=== PATIENT | female | born 1945 | race Caucasian/White ===

== ENCOUNTER 2018-04-09 15:04 | Outpatient (CLI) | payer MEDICARE, OTHER, SELFPAY ==
[2018-04-09 16:04] LABS: Abs Immature Grans 0.01 k/cumm (0.0-0.09); Absolute Basophil Count 0.04 k/cumm (0.0-0.2); Absolute Eosinophil Count 0.31 k/cumm (0.0-0.7); Absolute Lymphocyte Count 1.49 k/cumm (1.2-3.4); Absolute Monocyte Count 0.67 k/cumm (0.11-0.7); Absolute Neutrophil Count 2.85 k/cumm (1.2-6.7); Basophils % 0.7; Eosinophils % 5.8; HCT 38.6 % (36.0-46.0); HGB 12.8 g/dL (12.0-15.5); Immature Grans % 0.2; Lymphocytes % 27.7; Mean Corp. HGB Concentration 33.2 g/dL (32.0-36.0); Mean Corpuscular Hemoglobin 29.8 pg (27.0-33.0); Mean Corpuscular Volume 89.8 fL (80-95); Mean Platelet Volume 9.6 fL (8.0-11.0); Monocytes % 12.5; Neutrophils % 53.1; Platelet Count 228 x1000/uL (130-400); RBC Distribution Width 14.2 % (11.7-14.6); White Blood Cell Count 5.37 k/cumm (4.4-10.8)
[2018-04-09 16:24] LABS: ALT 34 U/L (12-78); AST 22 U/L (15-37); Albumin 3.4 g/dL (3.4-5.0); Alkaline Phosphatase 57 U/L (46-116); Anion Gap 6.5 mmol/L (3-11); BUN 18 mg/dL (7-18); Bilirubin, Total 0.3 mg/dL (0.2-1.0); CO2 30.5 mmol/L (21.0-32.0); CREATININE 0.71 mg/dL (0.55-1.02); Calcium 8.5 mg/dL (8.5-10.1); Chloride 103 mmol/L (98-107); Glucose 83 mg/dL (70-100); Potassium 3.9 mmol/L (3.5-5.1); Sodium 140 mmol/L (136-145); Total Protein 6.9 g/dL (6.4-8.2)
== END 2018-04-09 15:24 ==
PROVIDERS: PCP Neuromusculoskeletal Medicine & OMM; Visit Provider Internal Medicine
DX: C50.912 Malignant neoplasm of unspecified site of left female breast (principal); Z17.0 Estrogen receptor positive status [ER+]
CPT/HCPCS: 36415; 80053; 85025

== ENCOUNTER 2018-06-07 09:55 | Outpatient (CLI) | payer MEDICARE, OTHER, SELFPAY ==
[2018-06-07 10:18] LABS: Absolute Basophil Count 0.06 k/cumm (0.0-0.2); Absolute Eosinophil Count 0.31 k/cumm (0.0-0.7); Absolute Lymphocyte Count 1.04 k/cumm (1.2-3.4); Absolute Monocyte Count 0.66 k/cumm (0.11-0.7); Basophils % 1.3; Eosinophils % 6.5; HGB 13.3 g/dL (12.0-15.5); Lymphocytes % 21.8; Mean Corp. HGB Concentration 32.4 g/dL (32.0-36.0); Mean Corpuscular Hemoglobin 29.8 pg (27.0-33.0); Mean Corpuscular Volume 91.7 fL (80-95); Mean Platelet Volume 9.7 fL (8.0-11.0); Monocytes % 13.8; Neutrophils % 56.6; Platelet Count 210 x1000/uL (130-400); RBC 4.47 m/cumm (4.00-5.20); RBC Distribution Width 13.9 % (11.7-14.6); White Blood Cell Count 4.77 k/cumm (4.4-10.8)
[2018-06-07 10:30] LABS: ALT 23 U/L (12-78); AST 16 U/L (15-37); Albumin 3.3 g/dL (3.4-5.0); Alkaline Phosphatase 74 U/L (46-116); Anion Gap 6.7 mmol/L (3-11); BUN 13 mg/dL (7-18); Bilirubin, Total 0.4 mg/dL (0.2-1.0); CO2 30.3 mmol/L (21.0-32.0); CREATININE 0.78 mg/dL (0.55-1.02); Calcium 8.9 mg/dL (8.5-10.1); Chloride 103 mmol/L (98-107); Glucose 89 mg/dL (70-100); Potassium 3.6 mmol/L (3.5-5.1); Sodium 140 mmol/L (136-145)
== END 2018-06-07 10:15 ==
PROVIDERS: Nurse Practitioner Family; PCP Neuromusculoskeletal Medicine & OMM; Visit Provider Internal Medicine
DX: C50.912 Malignant neoplasm of unspecified site of left female breast (principal); Z17.0 Estrogen receptor positive status [ER+]
CPT/HCPCS: 36415; 80053; 85025

== ENCOUNTER 2019-01-07 09:09 | Outpatient (CLI) | payer MEDICARE, OTHER, SELFPAY ==
[2019-01-07 09:44] LABS: Abs Immature Grans 0.01 k/cumm (0.0-0.09); Absolute Basophil Count 0.05 k/cumm (0.0-0.2); Absolute Lymphocyte Count 1.18 k/cumm (1.2-3.4); Absolute Monocyte Count 0.51 k/cumm (0.11-0.7); Absolute Neutrophil Count 2.61 k/cumm (1.2-6.7); Basophils % 1.1; Eosinophils % 6.4; HCT 40.3 % (36.0-46.0); HGB 13.1 g/dL (12.0-15.5); Immature Grans % 0.2; Lymphocytes % 25.3; Mean Corp. HGB Concentration 32.5 g/dL (32.0-36.0); Mean Corpuscular Hemoglobin 29.4 pg (27.0-33.0); Mean Corpuscular Volume 90.6 fL (80-95); Mean Platelet Volume 10.3 fL (8.0-11.0); Monocytes % 10.9; Neutrophils % 56.1; Platelet Count 202 x1000/uL (130-400); RBC 4.45 m/cumm (4.00-5.20); White Blood Cell Count 4.66 k/cumm (4.4-10.8)
[2019-01-07 09:57] LABS: ALT 28 U/L (12-78); AST 20 U/L (15-37); Albumin 3.6 g/dL (3.4-5.0); Alkaline Phosphatase 66 U/L (46-116); Anion Gap 8.9 mmol/L (3-11); BUN 15 mg/dL (7-18); Bilirubin, Total 0.6 mg/dL (0.2-1.0); CO2 26.1 mmol/L (21.0-32.0); CREATININE 0.67 mg/dL (0.55-1.02); Calcium 8.5 mg/dL (8.5-10.1); Chloride 105 mmol/L (98-107); Glucose 100 mg/dL (70-100); Potassium 4.4 mmol/L (3.5-5.1); Sodium 140 mmol/L (136-145)
== END 2019-01-07 09:29 ==
PROVIDERS: PCP Neuromusculoskeletal Medicine & OMM; Visit Provider Internal Medicine
DX: C50.912 Malignant neoplasm of unspecified site of left female breast (principal)
CPT/HCPCS: 36415; 80053; 85025

== ENCOUNTER 2019-07-01 12:00 | Outpatient (CLI) | payer MEDICARE, OTHER, SELFPAY ==
[2019-07-01 12:15] LABS: Abs Immature Grans 0.01 k/cumm (0.0-0.09); Absolute Basophil Count 0.04 k/cumm (0.0-0.2); Absolute Eosinophil Count 0.37 k/cumm (0.0-0.7); Absolute Monocyte Count 0.63 k/cumm (0.11-0.7); Absolute Neutrophil Count 2.85 k/cumm (1.2-6.7); Basophils % 0.7; Eosinophils % 6.7; HCT 39.9 % (36.0-46.0); Immature Grans % 0.2 %; Lymphocytes % 29.1; Mean Corp. HGB Concentration 32.6 g/dL (32.0-36.0); Mean Corpuscular Hemoglobin 29.5 pg (27.0-33.0); Mean Corpuscular Volume 90.5 fL (80-95); Mean Platelet Volume 10.2 fL (8.0-11.0); Monocytes % 11.5; Neutrophils % 51.8; Platelet Count 215 x1000/uL (130-400); RBC 4.41 m/cumm (4.00-5.20); RBC Distribution Width 13.9 % (11.7-14.6)
[2019-07-01 12:40] LABS: ALT 21 U/L (14-59); AST 20 U/L (15-37); Albumin 3.6 g/dL (3.4-5.0); Alkaline Phosphatase 69 U/L (46-116); Anion Gap 6.6 mmol/L (3-11); BUN 12 mg/dL (7-18); Bilirubin, Total 0.5 mg/dL (0.2-1.0); CO2 30.4 mmol/L (21.0-32.0); CREATININE 0.66 mg/dL (0.55-1.02); Calcium 9.7 mg/dL (8.5-10.1); Chloride 104 mmol/L (98-107); Glucose 94 mg/dL (74-106); Potassium 3.8 mmol/L (3.5-5.1); Sodium 141 mmol/L (136-145); Total Protein 6.9 g/dL (6.4-8.2)
== END 2019-07-01 12:20 ==
PROVIDERS: PCP Neuromusculoskeletal Medicine & OMM; Visit Provider Internal Medicine
DX: C50.912 Malignant neoplasm of unspecified site of left female breast (principal)
CPT/HCPCS: 36415; 80053; 85025

== ENCOUNTER 2019-12-02 00:55 | Outpatient (CLI) | payer MEDICARE, OTHER, SELFPAY ==
[2019-12-02 10:18] LABS: Absolute Basophil Count 0.04 k/cumm (0.0-0.2); Absolute Eosinophil Count 0.29 k/cumm (0.0-0.7); Absolute Lymphocyte Count 1.21 k/cumm (1.2-3.4); Absolute Neutrophil Count 2.86 k/cumm (1.2-6.7); Basophils % 0.8; Eosinophils % 5.8; HGB 12.3 g/dL (12.0-15.5); Lymphocytes % 24.2; Mean Corp. HGB Concentration 32.4 g/dL (32.0-36.0); Mean Corpuscular Hemoglobin 29.6 pg (27.0-33.0); Mean Corpuscular Volume 91.3 fL (80-95); Mean Platelet Volume 10.7 fL (8.0-11.0); Neutrophils % 57.2; Platelet Count 216 x1000/uL (130-400); RBC 4.16 m/cumm (4.00-5.20); RBC Distribution Width 14.1 % (11.7-14.6)
[2019-12-02 10:30] LABS: ALT 25 U/L (14-59); AST 23 U/L (15-37); Albumin 3.6 g/dL (3.4-5.0); Alkaline Phosphatase 64 U/L (46-116); Anion Gap 7.1 mmol/L (3-11); BUN 21 mg/dL (7-18); Bilirubin, Total 0.5 mg/dL (0.2-1.0); CO2 27.9 mmol/L (21.0-32.0); CREATININE 0.94 mg/dL (0.55-1.02); Calcium 8.9 mg/dL (8.5-10.1); Chloride 105 mmol/L (98-107); Glucose 109 mg/dL (74-106); Potassium 4.3 mmol/L (3.5-5.1); Sodium 140 mmol/L (136-145); Total Protein 6.7 g/dL (6.4-8.2)
== END 2019-12-02 01:15 ==
PROVIDERS: PCP Neuromusculoskeletal Medicine & OMM; Visit Provider Internal Medicine
DX: C50.912 Malignant neoplasm of unspecified site of left female breast (principal); Z17.0 Estrogen receptor positive status [ER+]
CPT/HCPCS: 36415; 80053; 85025

== ENCOUNTER 2020-06-09 10:49 | Outpatient (CLI) | payer MEDICARE, OTHER, SELFPAY ==
[2020-06-09 12:01] LABS: ALT 27 U/L (14-59); AST 17 U/L (15-37); Albumin 3.7 g/dL (3.4-5.0); Alkaline Phosphatase 70 U/L (46-116); Anion Gap 6.8 mmol/L (3-11); BUN 16 mg/dL (7-18); Bilirubin, Total 0.5 mg/dL (0.2-1.0); CO2 28.2 mmol/L (21.0-32.0); CREATININE 0.84 mg/dL (0.55-1.02); Calcium 9.2 mg/dL (8.5-10.1); Chloride 105 mmol/L (98-107); Glucose 97 mg/dL (74-106); Potassium 4.1 mmol/L (3.5-5.1); Sodium 140 mmol/L (136-145); Total Protein 7.2 g/dL (6.4-8.2)
== END 2020-06-09 11:09 ==
PROVIDERS: PCP Neuromusculoskeletal Medicine & OMM; Visit Provider Internal Medicine
DX: C50.912 Malignant neoplasm of unspecified site of left female breast (principal); Z17.0 Estrogen receptor positive status [ER+]
CPT/HCPCS: 36415; 80053

== ENCOUNTER 2020-12-08 09:09 | Outpatient (CLI) | payer MEDICARE, OTHER, SELFPAY ==
--- OUTSIDE RECORDS SUMMARY | 2020-12-08 09:17 | XMS_ITS | Encounter Summary ---
:1945 Author Care Team Providers Name Role Phone Tristian Triana DO Primary Care Provider Unavailable Reason for Visit 75 yr. old female here for evaluation of a right finger injury Assessment and Plan 1. Injury of finger will update tetanus, DSD with bacitracin to abrasion to heal by secondary intent, [place] tape to 3rd finger, will g o for Xray, if fracture present will start on ABX, f/u if symptoms worsen, change dres sing daily & when soiled. ? XR, finger(s), 2 or more v iew - 2nd finger ? TDVAX 2 Lf unit-2 Lf unit/ 0.5 mL intramuscular suspension Discussion Note: None recorded.Patient educational handouts: No information available. Plan of Care Reminders Provider Appointments Return to on or around Ren Arenas MD Office 07/24/2021 Lab None ? ? recorded. Referral None ? ? recorded. Procedures None ? ? recorded. Surgeries None ? ? recorded. Imaging XR, 10/29/2020 [place] Finger(s), 2 or [facility] More View (Internal) Medications Name Start Date ? ? atorvastatin 10 mg tablet ? TAKE 1 TABLET BY MOUTH ONCE DAILY Calcium 500 + D ? 1 daily docusate sodium 250 mg capsule ? Take 1 capsule every day by oral route. hydrochlorothiazide 25 mg tablet ? Take 1 tablet every day by oral route for 30 days. Joint Support Complex ? 1 daily nystatin 100,000 unit/gram topical cream ? 1 application: 3 times a day to affected area tamoxifen 20 mg tablet ? TAKE ONE TABLET BY MOUTH EVERY DAY Zometa ? once every six months, administered at cancer center ,IV Medications Administered None recorded. Vitals Weight Blood Pressure 168 lbs 142/80 mm[Hg] Results Lab Results None recorded. Allergies Code Code System Name Reaction Severity Onset 1564541 RxNorm Latex ? ? ? Problems Name Status Onset Date Source ? Primary Malignant Neoplasm of Female Breast Active ? History Hyperlipidemia Active ? History Anemia Due to Chemotherapy Active ? Histo ry Constipation Active ? History Allergic Contact Dermatitis Active ? Hist ory Ingrowing Nail Active ? History Abnormal Weight Loss Active ? History Solitary Nodule of Lung Active ? History Pain in Right Foot Active ? History Cellulitis of Finger of Right Hand Active ? History Procedures Date Name Performed by ? 12/23/2018 Bone Density Scan Information not avai lable 11/23/2017 Mammography Information not avai lable 09/15/2015 Mastectomy Information not avai lable Notes: Left Modified Radical Mastecto my 10/29/2020 XR, Finger(s), 2 or More View [facility] (Internal) [address] [place] [address] (Work Place) Vaccine List Vaccine Type COVID-19, mRNA, LNP-S, PF, 100 mcg/0.5 m L dose 07/20/2020 08/14/2020 influenza, injectable, quadrivalent 03/10/2019 03/01/2020 influenza, seasonal, injectable 04/11/2006 06/27/2007 05/01/2008 04/29/2010 07/03/2016?0.5 mL 03/13/2017?0.5 mL influenza, seasonal, injectable, preserv ative free 06/24/2009?0.5 mL 04/27/2011?0.5 mL 04/26/2012?0.5 mL 04/02/2013?0.5 mL 04/14/2014?0.5 mL 04/29/2015?0.5 mL 07/03/2016?0.5 mL influenza, trivalent, adjuvanted 03/27/2018?0.5 mL novel [id number], all formulation s 09/09/2009?0.5 mL pneumococcal polysaccharide [id number] 04/22/2008 Td (adult), adsorbed 10/29/2020 Tdap 07/05/2006 Social History Tobacco Smoking Status Former Smoker Notes: Quit 50 years ago Most Recent Tobacco Use Screening 10/29/2020 Functional Status Unknown. Past Encounters 10/29/2020 Injury of Finger Neha Nunes, [employer]: [address] [place] [address], Ph. History of Present Illness ? Hand/Fingers Reported By: Patient HPI: Hand Dominance: left. Locati on: right; Pt. cut her right index finger yesterday between a tractor & a branch. Open area is 2.25cm in length. She cleansed area wi th soap & water, then H2O2, then applied ATB sherly & bandaid. Last Tdap was in 2006 Notes: <p>as above, difficulty bend ing finger</p><p>finger wound cleansed, antibiotic sherly. applied, & D SD, with instructions to pt. & her </p><p>
</p><p> ROS denies swelling, numbness, tingling, fevers</p> Note: <p>here with </p>Review of Systems: ROS as noted in the HPI Review of Systems None recorded. Physical Exam ? Brief PE Reported By: Patient General: General Appearance: healthy- appearing, well-nourished, well-developed. Level of Dis tress: NAD Musculoskeletal: Joints, Bones, and Muscles: ; rigth 2nd finger, no obvious deformity, tender at DIP, no ntender at PIP & MCP, able to move DIP minimally with assisted ROM and some pain Skin: Inspection and palpation: wa rm and dry, no lesions, good turgor; right 2nd finger, superficia l abrasion, approx 3 cm on middle phalanx, edges not appreciat ed, no bleeding, cap refill <2sec Psychiatric: Affect appropriate; calm, co operative
--- OUTSIDE RECORDS SUMMARY | 2020-12-08 09:17 | XMS_ITS ---
:1945 Author Care Team Providers Name Role Phone HOLLAND GAMBINO, DO Primary Care Provider Unavailable Allergies Code Code System Name Reaction Severity Status Onset [id number] RxNorm Latex ? ? Active ? Medications Name Status Start Date Stop Date ? ? atorvastatin 10 mg tablet Active ? Not av ailable TAKE 1 TABLET BY MOUTH ONCE DAILY azithromycin 250 mg tablet Completed ? 07/09 Bactrim DS 800 mg-160 mg tablet Completed 06/27/2007 07/01/2007 1 (one) Tablet: BID benzonatate 200 mg capsule Completed 06/03/201207/10 1 Capsule: q 8 hours prn cough Calcium 500 + D Active ? Not available 1 daily cephalexin 500 mg capsule Completed ? 2019 cephalexin 500 mg tablet Completed 04/10/2016 016 1 (one) Tablet Tablet: every six hours codeine 10 mg-guaifenesin 100 mg/5 Completed ? 07/09/2018 mL oral liquid docusate sodium 250 mg capsule Active ? N ot available Take 1 capsule every day by oral route. Fish Oil 60 mg-90 mg-500 mg capsule Completed 07/10/2012 08/27/2013 1 Capsule: daily flaxseed oil 1,000 mg capsule Completed 07/10/2012 1 Capsule: daily Fleet Glycerin (Adult) rectal suppository Completed 201502/21/2017 1 (one) Suppository Suppository: see comments fluconazole 100 mg tablet Completed 03/03/20162015 1 (one) Tablet Tablet: 200mg po on D-1, 100mg po D 2-7. fluconazole 200 mg tablet Completed ? 2020 Take 1 tablet every day by oral route for 3 days. hydrochlorothiazide 25 mg tablet Active ? Not available hydrocodone 5 mg-acetaminophen 325 mg tablet Completed 02/201608/25/2015 1 (one) Tablet Tablet: every four to six hours as needed Joint Support Complex Active ? Not availa ble 1 daily letrozole 2.5 mg tablet Completed ? 10/30/19 21 TAKE 1 TABLET BY MOUTH DAILY Metrogel Vaginal 0.75 % Completed 05/13/2008 05/18/20 08 1 (one) Application(s): two times daily nystatin 100,000 unit/gram topical cream Active ? Not available 1 application: 3 times a day to affected area ondansetron HCl 4 mg tablet Completed 10/27/201511/2016 1 (one) Tablet Tablet: every 8 hours as needed for nausea pantoprazole 40 mg tablet,delayed release Completed 201504/14/2016 1 (one) Tablet Tablet: daily Patanol 0.1 % eye drops Completed 07/05/2005 07/05/19 07 1 Drop(s): BID prn prednisone 10 mg tablet Active ? Not darren briones Prilosec OTC 20 mg tablet,delayed release Completed 201502/06/2016 1 (one) Tablet DR: as needed prochlorperazine maleate 10 mg tablet Completed 10/27/2015 02/21/2017 1 (one) Tablet Tablet: Every 6 hours as needed for nausea tamoxifen 20 mg tablet Active ? Not avail able TAKE ONE TABLET BY MOUTH EVERY DAY Zocor 20 mg tablet Completed 07/04/2011 07/04/2011 1 Tablet: hs Zometa Active ? Not available once every six months, administered at [facility] Problems Name Status Onset Date Source ? Primary Malignant Neoplasm of Female Breast Active ? History Hyperlipidemia Active ? History Anemia Due to Chemotherapy Active ? Histo ry Tracheobronchitis Unknown ? History Constipation Active ? History Allergic Contact Dermatitis Active ? Hist ory Ingrowing Nail Active ? History Bone Density Finding Unknown ? History Lack of Energy Unknown ? History Eruption Unknown ? History Abnormal Weight Loss Active ? History Cough Unknown ? History Solitary Nodule of Lung Active ? History Adult Health Examination Unknown ? History Pain in Right Foot Active ? History Finding of Esophagus Unknown ? History Cellulitis of Finger of Right Hand Active ? History Procedures Date Name Performed by ? 12/23/2018 Bone Density Scan Information not avai lable 11/23/2017 Mammography Information not avai lable 09/15/2015 Mastectomy Information not avai labsussy Notes: Left Modified Radical Mastecto my 10/15/2018 MAMMO, Screening, Tomosynthesis, [facility] Radiology (Internal) Unilateral [address] [place] [address] (Work Place) 05/19/2020 MAMMO, Diagnostic, Tomosynthesis, [facility] Radiology (Internal) Unilateral [address] [place] [address] (Work Place) 05/19/2020 MAMMO, Screening, Tomosynthesis, [facility] Radiology (Internal) Bilateral [address] [place] [address] (Work Place) 10/29/2020 XR, Finger(s), 2 or More View [facility] Radiology (Internal) [address] [place] [address] (Work Place) Results Lab Results Date Name Specimen Result Interpretation Description Value Range Status Address ? 12/25/2017 Venipuncture Blood ? Location Right ? ? P_nc Primary venous Antecubital Care [place]: [address] [place], [place] ? ? Blood ? Needle 21g ? ? P_nc Prim codi venous Vacutainer Care [place]: [address] [place], [place] ? ? Blood ? Number of 1 ? ? P_nc P rimary venous Attempts Care [place]: [address] [place], [place] ? ? Blood ? Successful Yes ? ? P_nc Primary venous Care [place]: [address] [place], [place] ? ? Blood ? Dressing Pressure ? ? P_nc Primary venous Band-aid Care Applied [place]: [address] [place], [place] ? ? Blood ? Initials LMK ? ? P_nc Pr imary venous Care [place]: [address] [place], [place] 01/09/2017 Venipuncture ? No ? ? ? observation recorded. 09/27/2016 CMP, Serum or PLASMA ? g/r 85 mg/dL 74-1 [facility] Plasma 06 l Hospital L ab mg/d (Internal) : [address] ? ? PLASMA ? Bun 14 mg/dL 7-17 [facility] untry mg/d l Hospital L ab L (Internal) : [address] ? ? PLASMA ? Crea 0.70 mg/dL 0.52 [facility] -1.0 l Hospital L ab 4 (Internal) : 189 mg/d [address] , L Anuj ? ? PLASMA ? Ca 8.8 mg/dL 8.4- [facility] ountry 10.2 l Hospital L ab mg/d (Internal) : [address] [place] ? ? PLASMA ? Na 139 mmol/L 137- [facility] 145 l Hospital L ab mmol (Internal) : 189 /L [address] A[address] ? ? PLASMA ? K 3.8 mmol/L 3.5- [facility] 5.1 l Hospital L ab mmol (Internal) : 189 /L [address] A[address] ? ? PLASMA ? Cl 104 mmol/L 98-1 [facility] 07 l Hospital L ab mmol (Internal) : 189 /L [address] ? ? PLASMA ? Tco2 26.0 mmol/L 22.0 [facility] -30. l Hospital L ab 0 (Internal) : 189 mmol [address] , /L [place] ? ? PLASMA ? Tp 6.7 g/dL 6.3- [facility] untry 8.2 l Hospital L ab g/dL (Internal) : [address] ? ? PLASMA ? Alb 3.8 g/dL 3.5- [facility] untry 5.0 l Hospital L ab g/dL (Internal) : [address] Anuj ? ? PLASMA ? Tbil 0.6 mg/dL 0.2- [facility] ountry 1.3 l Hospital L ab mg/d (Internal) : [address] ? ? PLASMA ? Alp 56 U/L 38-1 [facility] try 26 l Hospital L ab U/L (Internal) : [address] ? ? PLASMA ? Alt (Sgpt) 36 U/L 9-52 [facility] U/L l Hospital L ab (Internal) : [address] ? ? PLASMA ? Ast (Sgot) 31 U/L 14-3 [facility] 6 l Hospital L ab U/L (Internal) : [address] 09/27/2016 CBC W/ Auto BLD Low Wbc 3.0 10*3/uL 5.0- [facility] Diff 10.0 l Hospital L ab 10*3 (Internal) : [address] /uL [address] [place] ? ? BLD Low Rbc 3.99 10*6/uL 4.10 [facility] -5.3 l Hospital L ab 0 (Internal) : [address], /uL [place] ? ? BLD Low Hgb 11.4 g/dL 12.0 [facility] ountry -16. l Hospital L ab 0 (Internal) : 189 g/dL [address] [place] ? ? BLD Low Hct 35.0 % 37.0 [facility] try -47. l Hospital L ab 0 % (Internal) : [address] Anuj ? ? BLD ? Mcv 87.[address] [facility] ntry -96. l Hospital L ab 0 fL (Internal) : [address] Anuj ? ? BLD ? Mch 28.[address] [facility] ntry -32. l Hospital L ab 0 pg (Internal) : [address] Anuj ? ? BLD ? Mchc 32.6 g/dL 31.0 [facility] -35. l Hospital L ab 0 (Internal) : 189 g/dL [address] [place] ? ? BLD High Rdw 15.0 % 11.5 [facility] try -14. l Hospital L ab 5 % (Internal) : [address] Anuj ? ? BLD ? Plt 177 10*3/uL 130- [facility] 450 l Hospital L ab 10*3 (Internal) : [address] /uL [address] [place] ? ? BLD ? Anc 1.62 10*3/uL ? [facility] l Hospital L ab (Internal) : [address] [place] ? ? BLD ? Neutro 54.3 % 40.0 [facility] ntry -75. l Hospital L ab 0 % (Internal) : [address] [place] ? ? BLD ? Lymph 23.2 % 20.0 [facility] try -50. l Hospital L ab 0 % (Internal) : [address], [place] ? ? BLD High [place] 11.4 % 2.0- [facility] try 10.0 l Hospital L ab % (Internal) : [address] ? ? BLD High Eos 9.1 % 1.0- [facility] try 6.0 l Hospital L ab % (Internal) : [address] ? ? BLD High Baso 1.7 % 0.0- [facility] try 1.0 l Hospital L ab % (Internal) : [address] ? ? BLD ? Ig 0.3 % 0.0- [facility] try 0.9 l Hospital L ab % (Internal) : [address] 09/06/2016 Venipuncture BLD ? Venpn* ? ? [facility] l Hospital L ab (Internal) : [address] 09/06/2016 CMP, Serum or PLASMA ? g/r 79 mg/dL 74-1 [facility] Plasma 06 l Hospital L ab mg/d (Internal) : [address] Anuj ? ? PLASMA ? Bun 16 mg/dL 7-17 [facility] untry mg/d l Hospital L ab L (Internal) : [address] ? ? PLASMA ? Crea 0.60 mg/dL 0.52 [facility] -1.0 l Hospital L ab 4 (Internal) : 189 mg/d [address] Ilya Astudillo ? ? PLASMA ? Ca 8.9 mg/dL 8.4- [facility] ountry 10.2 l Hospital L ab mg/d (Internal) : [address] Anuj ? ? PLASMA ? Na 140 mmol/L 137- [facility] 145 l Hospital L ab mmol (Internal) : [address] /L [address] Anuj ? ? PLASMA ? K 3.9 mmol/L 3.5- [facility] 5.1 l Hospital L ab mmol (Internal) : [address] /L [address] Anuj ? ? PLASMA ? Cl 104 mmol/L 98-1 [facility] 07 l Hospital L ab mmol (Internal) : [address] /L [address] Anuj ? ? PLASMA ? Tco2 28.0 mmol/L 22.0 [facility] -30. l Hospital L ab 0 (Internal) : [address], /L [place] ? ? PLASMA ? Tp 6.9 g/dL 6.3- [facility] untry 8.2 l Hospital L ab g/dL (Internal) : [address] ? ? PLASMA ? Alb 3.8 g/dL 3.5- [facility] untry 5.0 l Hospital L ab g/dL (Internal) : [address] [place] ? ? PLASMA ? Tbil 0.5 mg/dL 0.2- [facility] ountry 1.3 l Hospital L ab mg/d (Internal) : [address] Anuj ? ? PLASMA ? Alp 58 U/L 38-1 [facility] try 26 l Hospital L ab U/L (Internal) : [address] Anuj ? ? PLASMA ? Alt (Sgpt) 37 U/L 9-52 [facility] U/L l Hospital L ab (Internal) : [address] [place] ? ? PLASMA ? Ast (Sgot) 29 U/L 14-3 [facility] 6 l Hospital L ab U/L (Internal) : [address] Anuj 09/06/2016 Cbc BLD Low Wbc 3.1 10*3/uL 5.0- [facility] 10.0 l Hospital L ab 10*3 (Internal) : 189 /uL [address] [place] ? ? BLD Low Rbc 3.98 10*6/uL 4.[address] [facility] -5.3 l Hospital L ab 0 (Internal) : [address], /uL [place] ? ? BLD Low Hgb 11.6 g/dL 12.0 [facility] ountry -16. l Hospital L ab 0 (Internal) : 189 g/dL [address] Anuj Astudillo ? ? BLD Low Hct 35.0 % 37.0 [facility] try -47. l Hospital L ab 0 % (Internal) : [address] [place] ? ? BLD ? Mcv 87.9 fL 80.0 [facility] ntry -96. l Hospital L ab 0 fL (Internal) : [address] [place] ? ? BLD ? Mch 29.[address] [facility] ntry -32. l Hospital L ab 0 pg (Internal) : [address] ? ? BLD ? Mchc 33.1 g/dL 31.0 [facility] ountry -35. l Hospital L ab 0 (Internal) : 189 g/dL [address] Anuj Astud[address] ? ? BLD High Rd[address] 15.4 % 11.5 [facility] try -14. l Hospital L ab 5 % (Internal) : [address] ? ? BLD ? Plt 190 10*3/uL 130- [facility] 450 l Hospital L ab 10*3 (Internal) : 189 /uL [address] ? ? BLD ? Anc 1.76 10*3/uL ? [facility] Country l Hospital L ab (Internal) : [address] 08/16/2016 Neutrophil BLD ? Anc-manual 1.96 10*3/uL ? [facility] Count, l Hospital L ab Absolute (Interna l): 189 (Anc), Blood Prou ty Anuj Astudillo 08/16/2016 Differential, BLD ? Polys 60 % 40-7 [facility] Manual, Blood 5 % l Hos pital Lab (Internal) : [address] ? ? BLD ? Bands 0 % 0-5 [facility] try % l Hospital L ab (Internal) : [address] ? ? BLD Low Lymphs 18 % 20-5 [facility] ntry 0 % l Hospital L ab (Internal) : [address] An[address] ? ? BLD High [place] 14 % 2-10 [facility] try % l Hospital L ab (Internal) : [address] An[address] ? ? BLD High Eos 7 % 0-6 [facility] try % l Hospital L ab (Internal) : [address] Anuj ? ? BLD ? Baso 1 % 0-1 [facility] try % l Hospital L ab (Internal) : [address] ? ? BLD ? Atyp Lymph 0 % ? [facility] l Hospital L ab (Internal) : [address] An[address] ? ? BLD ? Plts, Est. adequate adeq [facility] uate l Hospital L ab (Internal) : [address] ? ? BLD ABNOR RBC abnormal norm [facility] untry MAL Morphology al l Hospit al Lab (Internal) : [address] ? ? BLD ? Aniso occasional ? [facility] l Hospital L ab (Internal) : [address] 08/16/2016 CMP, Serum or PLASMA ? g/r 99 mg/dL 74-1 [facility] Plasma 06 l Hospital L ab mg/d (Internal) : [address] ? ? PLASMA ? Bun 17 mg/dL 7-17 [facility] untry mg/d l Hospital L ab L (Internal) : [address] ? ? PLASMA ? Crea 0.60 mg/dL 0.52 [facility] -1.0 l Hospital L ab 4 (Internal) : 189 mg/d [address] , L [place] ? ? PLASMA ? Ca 8.7 mg/dL 8.4- [facility] ountry 10.2 l Hospital L ab mg/d (Internal) : [address] ? ? PLASMA ? Na 141 mmol/L 137- [facility] 145 l Hospital L ab mmol (Internal) : 189 /L [address] ? ? PLASMA ? K 4.0 mmol/L 3.5- [facility] 5.1 l Hospital L ab mmol (Internal) : 189 /L [address] ? ? PLASMA ? Cl 105 mmol/L 98-1 [facility] 07 l Hospital L ab mmol (Internal) : 189 /L [address] ? ? PLASMA ? Tco2 27.0 mmol/L 22.0 [facility] -30. l Hospital L ab 0 (Internal) : 189 mmol [address] , /L [place] ? ? PLASMA ? Tp 6.7 g/dL 6.3- [facility] untry 8.2 l Hospital L ab g/dL (Internal) : [address] ? ? PLASMA ? Alb 3.6 g/dL 3.5- [facility] untry 5.0 l Hospital L ab g/dL (Internal) : [address] ? ? PLASMA ? Tbil 0.4 mg/dL 0.2- [facility] ountry 1.3 l Hospital L ab mg/d (Internal) : [address] Anuj ? ? PLASMA ? Alp 55 U/L 38-1 [facility] try 26 l Hospital L ab U/L (Internal) : [address] [place] ? ? PLASMA ? Alt (Sgpt) 31 U/L 9-52 [facility] U/L l Hospital L ab (Internal) : [address] [place] ? ? PLASMA ? Ast (Sgot) 23 U/L 14-3 [facility] 6 l Hospital L ab U/L (Internal) : [address] [place] 08/16/2016 CBC W/ Auto BLD Low Wbc 3.3 10*3/uL 5.0- [facility] Diff 10.0 l Hospital L ab 10*3 (Internal) : 189 /uL [address] ? ? BLD Low Rbc 3.93 10*6/uL 4.10 [facility] -5.3 l Hospital L ab 0 (Internal) : 189 10*6 [address] , /uL [place] ? ? BLD Low Hgb 11.3 g/dL 12.0 [facility] ountry -16. l Hospital L ab 0 (Internal) : 189 g/dL [address] [place] ? ? BLD Low Hct 34.2 % 37.0 [facility] try -47. l Hospital L ab 0 % (Internal) : [address] ? ? BLD ? Mcv [address] [facility] ntry -96. l Hospital L ab 0 fL (Internal) : [address] ? ? BLD ? Mch 28.[address] [facility] ntry -32. l Hospital L ab 0 pg (Internal) : [address] ? ? BLD ? Mchc 33.0 g/dL 31.0 [facility] ountry -35. l Hospital L ab 0 (Internal) : 189 g/dL [address] ? ? BLD High Rdw 15.5 % 11.5 [facility] try -14. l Hospital L ab 5 % (Internal) : [address] ? ? BLD ? Plt 192 10*3/uL 130- [facility] [place] 450 l Hospital L ab 10*3 (Internal) : 189 /u[address] Past Encounters 10/29/2020 Injury of Finger Neha Cheung Manju, [employer]ESS TENDER: [address] [place] [address], Ph. 08/19/2019 Candidiasis of Skin Alva Sharif, PASriC: [address] [facility], [place] [address], Ph. Social History Tobacco Smoking Status Former Smoker Notes: Quit 50 years ago Vaccine List Vaccine Type COVID-19, mRNA, LNP-S, PF, 100 mcg/0.5 m L dose 07/20/2020 08/14/2020 influenza, injectable, quadrivalent 03/10/2019 03/01/2020 influenza, seasonal, injectable 04/11/2006 06/27/2007 05/01/2008 04/29/2010 07/03/2016?0.5 mL 03/13/2017?0.5 mL influenza, seasonal, injectable, preserv ative free 06/24/2009?0.5 mL 04/27/2011?0.5 mL 04/26/2012?0.5 mL 04/02/2013?0.5 mL 04/14/2014?0.5 mL 04/29/2015?0.5 mL 07/03/2016?0.5 mL influenza, trivalent, adjuvanted 03/27/2018?0.5 mL novel [id number], all formulation s 09/09/2009?0.5 mL pneumococcal polysaccharide [id number] 04/22/2008 Td (adult), adsorbed 10/29/2020 Tdap 07/05/2006 Plan of Care Reminders Provider Appointments None ? ? recorded. Lab None ? ? recorded. Referral None ? ? recorded. Procedures None ? ? recorded. Surgeries None ? ? recorded. Imaging None ? ? recorded. Vitals 10/29/2020 11:00AM Acute 20 Weight Blood Pressure 76.2 kg 142/80 mm[Hg] 08/19/2019 01:20PM Acute 20 Height Weight BMI Blood Pressure 168.91 cm 71.67 kg 25.1 kg/m2 130/80 mm[Hg] 01/22/2019 03:20PM Same Day 20 Height Blood Pressure 168.91 cm 130/80 mm[Hg] 07/09/2018 10:00AM Follow Up 20 Height Weight BMI Blood Pressure 168.91 cm 66.68 kg 23.4 kg/m2 160/78 mm[Hg] 06/24/2018 10:00AM Nurse 20 Blood Pressure 160/80 mm[Hg] 09/21/2017 Weight Blood Pressure 62.77 kg 128/64 mm[Hg] 02/21/2017 Weight Blood Pressure 58.06 kg 146/80 mm[Hg] 09/27/2016 Weight Blood Pressure 56.1 kg 135/84 mm[Hg] 09/06/2016 Weight Blood Pressure 58.2 kg 159/98 mm[Hg] 08/21/2016 Height Weight Blood Pressure 168.91 cm 58.51 kg 142/86 mm[Hg] 08/16/2016 Weight Blood Pressure 57.2 kg 142/77 mm[Hg] 07/26/2016 Weight Blood Pressure 56.8 kg 143/79 mm[Hg] 07/05/2016 Weight Blood Pressure 56.4 kg 140/75 mm[Hg] 06/14/2016 Weight Blood Pressure 63.6 kg 125/71 mm[Hg] 05/24/2016 Weight Blood Pressure 59.5 kg 132/69 mm[Hg] 05/03/2016 Weight Blood Pressure 60.5 kg 140/79 mm[Hg] 04/19/2016 Height Weight Blood Pressure 168.91 cm 61.92 kg 138/84 mm[Hg] 04/12/2016 Weight Blood Pressure 61.8 kg 140/56 mm[Hg] 04/10/2016 Height Weight Blood Pressure 168.91 cm 61.92 kg 144/66 mm[Hg] 03/29/2016 Weight Blood Pressure 62.5 kg 142/71 mm[Hg] 03/15/2016 Weight Blood Pressure 62 kg 136/74 mm[Hg] 03/01/2016 Weight Blood Pressure 62.3 kg 126/74 mm[Hg] 02/17/2016 Height Weight 168.91 cm 62.6 kg 02/09/2016 Weight Blood Pressure 64.5 kg 130/67 mm[Hg] 01/12/2016 Weight Blood Pressure 63.4 kg 121/71 mm[Hg] 01/07/2016 Weight Blood Pressure 63.96 kg 140/76 mm[Hg] 12/08/2015 Weight Blood Pressure 68.6 kg 149/72 mm[Hg] 11/24/2015 Weight Blood Pressure 69.5 kg 117/77 mm[Hg] 11/10/2015 Weight Blood Pressure 71.8 kg 150/80 mm[Hg] 10/27/2015 Height Weight Blood Pressure 169 cm 72.3 kg 140/80 mm[Hg] 08/17/2015 Height Weight Blood Pressure 168.91 cm 71.67 kg 175/100 mm[Hg] 09/28/2014 Height Weight Blood Pressure 166.37 cm 70.76 kg 122/70 mm[Hg] 08/27/2013 Height Weight Blood Pressure 168.91 cm 69.85 kg 126/70 mm[Hg] 08/07/2012 Height Weight Blood Pressure 167.64 cm 68.04 kg 140/80 mm[Hg] 07/10/2012 Height Weight Blood Pressure 167.64 cm 68.04 kg 122/76 mm[Hg] 06/24/2012 Height Weight Blood Pressure 167.64 cm 65.77 kg 130/80 mm[Hg] 06/03/2012 Blood Pressure 130/80 mm[Hg] 07/04/2011 Height Weight Blood Pressure 167.64 cm 65.77 kg 132/56 mm[Hg] 06/15/2011 Weight Blood Pressure 65.77 kg 124/60 mm[Hg] 06/02/2011 Height Weight Blood Pressure 167.64 cm 65.77 kg 126/74 mm[Hg] 06/24/2009 Weight Blood Pressure 64.86 kg 122/76 mm[Hg] 04/30/2009 Height Weight Blood Pressure 168.91 cm 67.13 kg 130/60 mm[Hg] 04/22/2008 Height Weight Blood Pressure 170.18 cm 65.32 kg 126/78 mm[Hg] 06/27/2007 Blood Pressure 128/78 mm[Hg] 07/05/2006 Height Weight Blood Pressure 162.56 cm 63.05 kg 142/72 mm[Hg] 01/15/2006 Height Weight Blood Pressure 170.18 cm 63.05 kg 136/80 mm[Hg] 01/01/2006 Blood Pressure 128/70 mm[Hg] 07/05/2005 Weight Blood Pressure 63.05 kg 136/84 mm[Hg] 05/31/2005 Blood Pressure (1) 156/76 mm[Hg] (2) 156/80 mm[Hg] 05/25/2005 Height Weight Blood Pressure 168.91 cm 63.5 kg 148/80 mm[Hg]
[2020-12-08 10:42] LABS: Abs Immature Grans 0.01 10^3/uL (0.0-0.06); Absolute Basophil Count 0.07 10^3/uL (0.0-0.2); Absolute Monocyte Count 0.63 10^3/uL (0.1-0.8); Basophils % 1.3; Eosinophils % 3.6; HCT 40.7 % (36.0-46.0); HGB 13.1 g/dL (11.2-15.7); Immature Grans % 0.2; MCH 29.4 pg (27.0-33.0); MCHC 32.2 % (32.0-36.0); MCV 91.5 fL (80-95); MPV 11.2 fL (8.0-11.0); Monocytes % 11.4; Neutrophils % 54.5; Nucleated RBC 0 %; Platelet Count 191 10^3/uL (130-400); RBC 4.45 10^6/uL (3.93-5.22); RDW 13.8 % (11.7-14.6); RDW-SD 46.8 fL; WBC 5.51 10^3/uL (4.4-10.8)
[2020-12-08 10:52] LABS: ALT 22 U/L (14-59); AST 20 U/L (15-37); Albumin 3.7 g/dL (3.4-5.0); Alkaline Phosphatase 56 U/L (46-116); Anion Gap 9.6 mmol/L (3-11); BUN 14 mg/dL (7-18); Bilirubin, Total 0.4 mg/dL (0.2-1.0); CO2 26.4 mmol/L (21.0-32.0); CREATININE 0.9 mg/dL (0.55-1.02); Calcium 8.9 mg/dL (8.5-10.1); Chloride 105 mmol/L (98-107); Glucose 100 mg/dL (74-106); Potassium 4.1 mmol/L (3.5-5.1); Sodium 141 mmol/L (136-145); Total Protein 7.4 g/dL (6.4-8.2)
== END 2020-12-08 09:10 | disposition home or self-care (01) ==
LOC: LBO 09:14
PROVIDERS: Nurse Practitioner Adult Health; PCP Neuromusculoskeletal Medicine & OMM; Visit Provider Internal Medicine
DX: C50.912 Malignant neoplasm of unspecified site of left female breast (principal); Z17.0 Estrogen receptor positive status [ER+]; M81.0 Age-related osteoporosis without current pathological fracture
CPT/HCPCS: 36415; 80053; 85025

== ENCOUNTER 2021-07-14 02:41 | Outpatient (CLI) | payer MEDICARE, OTHER, SELFPAY ==
--- NOTE | 2021-07-14 | DI.DEXA_ITS ---
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 No compression deformities identified. Left hip: Total T-Score: -1.1 Total Z-Score: 0.8 T- and Z-scores: Findings consistent with osteopenia. Lumbar Spine: Total T-Score: -1.1 Total Z-Score: 1.4 T- and Z-scores: Findings consistent with osteopenia. IMPRESSION: No evidence of osteoporosis.
== END 2021-07-14 03:01 ==
PROVIDERS: PCP Neuromusculoskeletal Medicine & OMM; Visit Provider Nurse Practitioner Adult Health
DX: M81.0 Age-related osteoporosis without current pathological fracture (principal); M85.88 Other specified disorders of bone density and structure, other site; C50.912 Malignant neoplasm of unspecified site of left female breast; Z79.811 Long term (current) use of aromatase inhibitors
CPT/HCPCS: 77080

== ENCOUNTER 2021-07-28 02:18 | Outpatient (CLI) | payer MEDICARE, OTHER, SELFPAY ==
--- NOTE | 2021-07-28 | DI.US_ITS ---
Exam(s) US PELVIS TRANSVAGINAL EXAM: US PELVIS TRANSVAGINAL CLINICAL HISTORY: POSTMENOPAUSAL BLEEDING, N95.0, ON TAMOXIFEN TECHNIQUE: Ultrasound of the pelvis was performed both transabdominal and transvaginal. COMPARISON: No exams were available for comparison FINDINGS: UTERUS: Nongravid and anteverted Measures 8.5 cm length x 4.0 cm AP x 6.3 cm wide. There are no uterine fibroids. Endometrial thickness measures 12 mm. It is most thickened and somewhat heterogeneous. There is no fluid in the endometrial canal. CERVIX: There are no obvious nabothian cysts. RIGHT OVARY: Measures 1.8 x 1.0 x 1.6 cm No significant cysts nor masses evident in the right ovary. LEFT OVARY: The left ovary is not seen CUL-DE-SAC: No free fluid evident. IMPRESSION: 1. The endometrial lining of the uterus is thickened (12 millimeters) and heterogeneous 2. No abnormal ovarian findings. Left ovary is not visualized in this 75-year-old patient. 3. No free fluid evident in the adnexal regions and cul-de-sac. DATA REPOSITORY:
== END 2021-07-28 02:38 ==
PROVIDERS: PCP Neuromusculoskeletal Medicine & OMM; Visit Provider Obstetrics & Gynecology Gynecologic Oncology
DX: N95.0 Postmenopausal bleeding (principal); Z79.810 Long term (current) use of selective estrogen receptor modulators (SERMs); Z85.3 Personal history of malignant neoplasm of breast; R93.89 Abnormal findings on diagnostic imaging of other specified body structures
CPT/HCPCS: 76830; 76856

== ENCOUNTER 2022-01-17 15:31 | Outpatient (CLI) | payer MEDICARE, OTHER, SELFPAY ==
[2022-01-17 10:49] LABS: Abs Immature Grans 0.02 10^3/uL (0.0-0.06); Absolute Basophil Count 0.05 10^3/uL (0.0-0.2); Absolute Eosinophil Count 0.18 10^3/uL (0.0-0.7); Absolute Monocyte Count 0.62 10^3/uL (0.1-0.8); Absolute Neutrophil Count 3.39 10^3/uL (1.2-6.7); Basophils % 0.9; Eosinophils % 3.1; HCT 39.5 % (36.0-46.0); HGB 12.9 g/dL (11.2-15.7); Immature Grans % 0.3; Lymphocytes % 27.3; MCH 29.6 pg (27.0-33.0); MCHC 32.7 % (32.0-36.0); MCV 91 fL (80-95); Monocytes % 10.6; Neutrophils % 57.8; Platelet Count 179 10^3/uL (130-400); RBC 4.36 10^6/uL (3.93-5.22); RDW 14.1 % (11.7-14.6); RDW-SD 46.9 fL; WBC 5.86 10^3/uL (4.4-10.8)
[2022-01-17 11:05] LABS: ALT 26 U/L (14-59); AST 20 U/L (15-37); Albumin 3.7 g/dL (3.4-5.0); Alkaline Phosphatase 61 U/L (46-116); Anion Gap 4.7 mmol/L (3-11); BUN 15 mg/dL (7-18); Bilirubin, Total 0.6 mg/dL (0.2-1.0); CO2 28.3 mmol/L (21.0-32.0); CREATININE 0.8 mg/dL (0.55-1.02); Calcium 9.1 mg/dL (8.5-10.1); Chloride 103 mmol/L (98-107); Glucose 97 mg/dL (74-106); Potassium 3.8 mmol/L (3.5-5.1); Sodium 136 mmol/L (136-145); Total Protein 7.1 g/dL (6.4-8.2)
== END 2022-01-17 15:32 | disposition home or self-care (01) ==
PROVIDERS: PCP Neuromusculoskeletal Medicine & OMM; Visit Provider Internal Medicine
DX: C50.912 Malignant neoplasm of unspecified site of left female breast (principal); Z17.0 Estrogen receptor positive status [ER+]
CPT/HCPCS: 36415; 80053; 85025

== ENCOUNTER 2022-08-08 09:27 | Outpatient (CLI) | payer MEDICARE, OTHER, SELFPAY ==
[2022-08-08 09:43] LABS: Abs Immature Grans 0.01 10^3/uL (0.0-0.06); Absolute Basophil Count 0.07 10^3/uL (0.0-0.2); Absolute Eosinophil Count 0.23 10^3/uL (0.0-0.7); Absolute Monocyte Count 0.63 10^3/uL (0.1-0.8); Absolute Neutrophil Count 3.71 10^3/uL (1.2-6.7); Basophils % 1.1; Eosinophils % 3.6; HCT 43.4 % (36.0-46.0); HGB 13.7 g/dL (11.2-15.7); Immature Grans % 0.2; Lymphocytes % 27.9; MCH 28.5 pg (27.0-33.0); MCHC 31.6 % (32.0-36.0); MCV 90 fL (80-95); MPV 10.3 fL (8.0-11.0); Monocytes % 9.8; Neutrophils % 57.4; Platelet Count 216 10^3/uL (130-400); RDW 13.5 % (11.7-14.6); RDW-SD 45.5 fL; WBC 6.45 10^3/uL (4.4-10.8)
[2022-08-08 10:05] LABS: ALT 30 U/L (14-59); AST 18 U/L (15-37); Alkaline Phosphatase 75 U/L (46-116); Anion Gap 7.2 mmol/L (3-11); BUN 13 mg/dL (7-18); Bilirubin, Total 0.7 mg/dL (0.2-1.0); CO2 28.8 mmol/L (21.0-32.0); CREATININE 0.9 mg/dL (0.55-1.02); Chloride 105 mmol/L (98-107); Estimated GFR 65.03 (mL/min/1.73m2); Glucose 93 mg/dL (74-106); Sodium 141 mmol/L (136-145); Total Protein 7.5 g/dL (6.4-8.2)
== END 2022-08-08 09:28 | disposition home or self-care (01) ==
PROVIDERS: PCP Neuromusculoskeletal Medicine & OMM; Visit Provider Internal Medicine
DX: C50.912 Malignant neoplasm of unspecified site of left female breast (principal)
CPT/HCPCS: 36415; 80053; 85025